=== PATIENT | male | born 1955 | race Caucasian/White ===

== ENCOUNTER 2024-12-16 08:42 | Outpatient (REF) | payer MEDICARE, SELFPAY ==
--- NOTE | ~2024-12-16 | XR_ITS ---
CLINICAL HISTORY: M54.9 - Dorsalgia, unspecified 3 views thoracic spine Comparison: None Findings: The vertebral body heights are preserved. Small anterolateral osteophytes throughout. Intervertebral disc spaces are maintained. No fractures are present. Pedicles intact. Paraspinal lines are normal. Normal thoracic kyphosis. Normal bone mineralization. Impression: 1. No compression fractures or listhesis. This document has been electronically signed by: Demarcus Hill MD on 12/17/2024 12:08:09
--- NOTE | ~2024-12-16 | XR_ITS ---
CLINICAL HISTORY: M51.369 - Other intervertebral disc degeneration, lumbar region without ... 3 views lumbar spine Comparison: None Findings: No acute compression fractures.Degenerative facet arthropathy L3, L4 and L5. 2 mm retrolisthesis L2 relative to L3 and L3 relative to L4. Disc spaces are maintained. Pedicles and transverse processes intact. Lordotic curvature is preserved. Mild scoliosis without lateral listhesis. Normal bone mineralization. Calcified atherosclerotic disease is moderate Sacroiliac joints unremarkable. Impression: 1. Degenerative spondylosis with minimal listhesis. Moderate calcified atherosclerotic disease This document has been electronically signed by: Demarcus Hill MD on 12/17/2024 12:29:58
--- NOTE | ~2024-12-16 | XR_ITS ---
CLINICAL HISTORY: M25.512 - Pain in left shoulder 4 view left shoulder Comparison: None Findings: Normal congruency of the glenohumeral joint. AC joint arthrosis with minimal undersurface spurring. Greater tuberosity cysts. No fractures demonstrated. Minimal soft tissue calcifications near the insertion of the deltoid onto the proximal humerus probable calcific tendinopathy No radiopaque foreign body. Normal visualized left chest. Impression: 1. No fracture, subluxations or dislocations left shoulder. 2. AC joint arthrosis with minimal undersurface spurring. Greater tuberosity cysts a sequela rotator cuff tendinopathy. This document has been electronically signed by: Demarcus Hill MD on 12/17/2024 11:53:35
== END 2024-12-16 08:43 | disposition home or self-care (01) ==
LOC: HO.XRAY 08:42
PROVIDERS: PCP Internal Medicine; Referring Provider Internal Medicine; Visit Provider Nurse Practitioner Family
DX: M54.9 Dorsalgia, unspecified (principal); M47.816 Spondylosis without myelopathy or radiculopathy, lumbar region; M51.369 Other intervertebral disc degeneration, lumbar region without mention of lumbar back pain or lower extremity pain; M25.512 Pain in left shoulder; M54.50 Low back pain, unspecified; G89.29 Other chronic pain
CPT/HCPCS: 72070; 72110; 73030; 99202

== ENCOUNTER 2024-12-16 08:42 | Outpatient (AMB) | payer MEDICARE, SELFPAY ==
--- NOTE | 2024-12-16 08:46 | A.OFFVIS_ITS ---
Vital Signs 12/16/24 08:50 Height 5 ft 10 in Weight 191 lb 8 oz BMI 27.5 BP 150/90 H Blood Pressure Location Rt brachial Position Sitting Pulse 80 Pulse Source Pulse Oximeter Pulse Oximetry (%) 99 Oxygen Delivery Method Room Air Intake Visit Reasons: Low back pain Intake Note: Pain today 11/18 Auto Wash Buffer Required: No Accompanied by: Self / Same As Patient Allergies Penicillins Allergy (Unknown, Verified 12/16/24 08:50) Angioedema HPI Comments Details: The patient is a pleasant 69-year-old male presenting with chronic lower back pain and left shoulder pain. The lower back pain has been an ongoing issue since 2022 without any clear causative trauma or injury. It is characterized by soreness and tightness primarily across the waistline, often associated with muscle spasms, but not radiating to the legs. Pain is typically rated around 5- 7/10 and exacerbates after prolonged sitting and daily activities. Sleep is not disrupted by the pain, and imaging has previously revealed lumbar degenerative disc disease. Denies previous spine or joint injections or surgeries. Concurrently, the patient experiences intermittent pain in the left shoulder, which tends to fluctuate and is aggravated by reaching his backside pockets or between shoulder blades. Previous attempts at relief included physical, chiropractic and massage therapies, which were more effective for shoulder discomfort than for back pain. Oswestry Low Back Disability Score=9 (mild disability) - Onset: Lower back pain since 2022; left shoulder pain for 4 months. - Quality and character: Lower back pain described as sore and tight with muscle spasms; shoulder pain as sharp and aching. - Location: Lower back pain centered across the waistline and lower spine; shoulder pain in the left shoulder aggravated during internal rotation and extension. - Radiation: No lower extremity radiation from back pain; shoulder pain associated with neck discomfort. - Exacerbating factors: Prolonged sitting for back pain; specific arm movements for shoulder pain. - Relieving factors: Not sleeping posture-dependent for back; no specific relieving factors noted for shoulder. - Functions interfered with: Physical activities; however, some recreational activities like pickleball and gym/home exercises. - Affect: Pain does not significantly affect mood or psychological wellbeing. - Analgesia: Medications tried include extra strength Tylenol, topical lidocaine, and heat/ice therapy. Pain level 5-7/10. - Adverse Effects: No specific adverse effects from pain medications reported. - Activities of Daily Living: Pain does not interfere with sleep but affects prolonged sitting and some physical activities. - Aberrant Drug Related Behaviors: No signs of medication misuse or abuse reported. [facility] Medical History (Updated 12/16/24 @ 09:55 by MAYELA Isaacs) Chronic low back pain Atherosclerosis of abdominal aorta Seborrhea Hypertension Hyperlipidemia Family history of colon cancer GERD (gastroesophageal reflux disease) Cholelithiasis Colon polyp Allergic rhinitis Lumbar degenerative disc disease Surgical History (Updated 12/16/24 @ 09:50 by MAYELA Isaacs) Hx of tonsillectomy Social History Alcohol intake: current Alcohol intake frequency: a few times a week Alcohol type: beer Patient Tobacco Use Status: Former Tobacco user Review of Systems Const Details: - Musculoskeletal: Reports muscle spasms in the lower back and left shoulder pain. - Neurological: Denies numbness, weakness, or tingling, bladder or bowel dysfunction or saddle anesthesia. - Gastrointestinal: Reports occasional acid reflux. - Ophthalmic: History of one right eye ocular migraine in 2019. - Respiratory/Systemic: Denies chronic cough but reports slight coughing in the morning. All systems reviewed & are unremarkable except as noted in HPI and below Physical Exam General: Appears afebrile. Alert and oriented. Mood and affect appropriate. Follows and participates in conversation appropriately. Respiratory effort is unlabored. No cough. Able to transition from sit to stand unassisted. Ambulates with bilaterally normal heel strike and toe off. General: Yes no CVA tenderness Back/Spine/Pelvis Other: Patient is able to walk and stand on heels and tip toes with no difficulties demonstrating good motor tone. No limping. Can flex forward to 70-75 degrees and extend to 5-10 degrees before experiencing lumbar pain, worse pain with lumbar extension and axial rotations. Demonstrates 5/5 strength of quadriceps bilaterally as well as flexion/dorsiflexion of bilateral feet against resistance. 2+ pedal pulses bilaterally. Straight leg rise with dorsiflexion negative bilaterally. +2 patellar and achilles reflexes bilaterally. Facet loading test positive bilaterally. Tana sign, Luan?s, and Stinchfield tests are negative bilaterally. No groin pain with I/E hip rotations. Significant paraspinals tenderness mostly in mid and lower back and left cervical paraspinals. Valsalva maneuver is negative. Back: no CVA tenderness Cervical Spine: cervical ROM normal, cervical muscular tenderness, No Cervical spine tenderness and No step off deformity Thoracic/Lumbar Spine: thoracic and lumbar spine normal to inspection, No Thoracic/lumbar spine scar(s), Lasegue's sign negative, straight leg raise negative bilaterally, pain with thoraco-lumbar ROM, paraspinal muscle tenderness, thoraco-lumbar ROM limited, No thoracic spinal tenderness and lumbar spinal tenderness at L4 and at L5 Pelvis: no buttock tenderness Sacroiliac joints: bilaterally nontender Extrem General: Yes capillary refill normal, Yes no clubbing, cyanosis or edema and Yes no calf tenderness Left upper extremity: shoulder/upper arm (Limited ROM with internal rotation and flexion due to pain.) Details: inspection abnormal, tenderness Location: of the A-C joint, over the subacromial bursa and over the deltoid bursa and crepitus; no swelling, no ecchymosis, no deformity and no unsual warmth Results Reviewed Results Reviewed: No imaging results are available for review today. Assessment & Plan Assessment & Plan (1) Lumbar degenerative disc disease: Code(s): M51.369 - Other intervertebral disc degeneration, lumbar region without mention of lumbar back pain or lower extremity pain Category: Medical (2) Lumbar spondylosis: Code(s): M47.816 - Spondylosis without myelopathy or radiculopathy, lumbar region Category: Medical (3) Left shoulder pain: Code(s): M25.512 - Pain in left shoulder Category: Medical (4) Mid back pain: Code(s): M54.9 - Dorsalgia, unspecified Category: Medical (5) Muscle spasm of back: Code(s): M62.830 - Muscle spasm of back Category: Medical (6) Chronic low back pain: Code(s): M54.50 - Low back pain, unspecified; G89.29 - Other chronic pain Category: Medical Plan The patient will receive x-rays of the lower back and left shoulder to evaluate arthritis and degenerative changes. Tizanidine and naproxen are prescribed for musculoskeletal and arthritic pain management, with tizanidine primarily at night, with caution advised due to its effects on blood pressure. Use of naproxen as needed for inflammation-related discomfort is suggested. Discussed interventional treatments for axial low back pain and left shoulder pain. Radiofrequency ablation and peripheral nerve stimulation were explained as options for pain control. Continued physical exercise and lifestyle modifications are essential in the management of the patient's pain. Patient education focused on arthritic pain mechanisms and relief methods. Informational pamphlets were provided to patient. All questions and concerns have been answered and patient agreed with the plan. Follow up for xray results/procedure discussion and sooner as needed. Patient was informed and verbally consented to the use of an ambient scribe for clinic note documentation during this visit. Orders: Orders XR lumbar spine 4V min Today M47.816 - Spondylosis without myelopathy or radiculopathy, lumbar region, M51.369 - Other intervertebral disc degeneration, lumbar region without mention of lumbar back pain or lower extremity pain XR thoracic spine 2V Today M54.9 - Dorsalgia, unspecified XR shoulder LT min 2V Today M25.512 - Pain in left shoulder Medications: New tizanidine 2 mg PO TID PRN 30 tabs 0RF muscle spasm M47.816 - Spondylosis without myelopathy or radiculopathy, lumbar region, M62.830 - Muscle spasm of back naproxen Take it with food and full glass of water. Avoid other NSAIDs. 500 mg PO BID PRN 60 tabs 1RF pain G89.29 - Other chronic pain, M25.512 - Pain in left shoulder, M47.816 - Spondylosis without myelopathy or radiculopathy, lumbar region, M54.50 - Low back pain, unspecified Patient Instructions: I discussed with the patient the likely primary diagnosis of lumbar degenerative disc disease and potentially facet arthropathy and left shoulder arthritis. We reviewed the management options, including potential imaging with x-ray to confirm diagnosis of both back and shoulder pain, alongside therapeutic options like steroid injections, especially focusing on the shoulder and diagnostic lumbar medial branch blocks for potential longer term relief for back pain. A comprehensive explanation of radiofrequency ablation and peripheral nerve stimulation was provided. We assessed the risk factors, benefits, and alternatives, highlighting procedural methods to alleviate chronic pain symptoms. Achieving consent, we touched on the need for lifestyle modifications and detailed how individual adaptations could mitigate further discomfort. Future follow-up would consider ongoing pain management revisions based on the response to initial interventions and x-ray findings. - Undergo x-rays for both the lower back and left shoulder. - Use Tizanidine 2 mg at bedtime for muscle stiffness; monitor blood pressure effects. - Use naproxen as needed for inflammation-related pain, with food and water. - Maintain regular exercise and physical activity, complimenting current lifestyle. - Consider enrolling in the patient portal for follow-up details and ongoing treatment updates. - Be mindful of any new symptoms or escalation in pain, and seek care if concerns arise. - Adhere to recommended pain management strategies, including physical and lifestyle interventions. Coding Level of Care Code New Pt Level 4 (71237) Diagnoses Lumbar degenerative disc disease M51.369 Lumbar spondylosis M47.816 Left shoulder pain M25.512 Mid back pain M54.9 Muscle spasm of back M62.830 Chronic low back pain M54.50; G89.29
[2024-12-16 08:50] VITALS: BP 150/90; PULSE 80; O2SAT 99; BMI 27.5
== END 2024-12-16 09:33 | disposition home or self-care (01) ==
LOC: HO.PMC 08:43
PROVIDERS: PCP Internal Medicine; Referring Provider Internal Medicine; Visit Provider Nurse Practitioner Family
DX: M51.369 Other intervertebral disc degeneration, lumbar region without mention of lumbar back pain or lower extremity pain (principal); M47.816 Spondylosis without myelopathy or radiculopathy, lumbar region; M25.512 Pain in left shoulder; M54.9 Dorsalgia, unspecified; M62.830 Muscle spasm of back; M54.50 Low back pain, unspecified; G89.29 Other chronic pain
CPT/HCPCS: 99204

== ENCOUNTER → 2024-12-16 09:52 | Outpatient (BNV) | payer MEDICARE, SELFPAY | PROVIDERS: PCP Internal Medicine; Referring Provider Internal Medicine; Visit Provider Radiology Diagnostic Radiology | DX: M47.816 Spondylosis without myelopathy or radiculopathy, lumbar region (principal); I70.90 Unspecified atherosclerosis; M54.6 Pain in thoracic spine; M19.012 Primary osteoarthritis, left shoulder | CPT/HCPCS: 72070; 72110; 73030 ==

== ENCOUNTER 2024-12-24 09:07 | Outpatient (AMB) | payer MEDICARE, SELFPAY ==
--- NOTE | 2024-12-24 09:07 | MHC.OFFVIS ---
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 The shoulder pain, persisting for 4 months, increases towards the end of the day after activities and movements, and is partially managed with heat application and naproxen. No prior interventions have been conducted on the shoulder. The lower back pain, since early 2022, surfaces mainly when the patient rises from prolonged sitting and with certain movements. He observes partial and temporary back pain relief with tizanidine and naproxen, but physical therapy addressing some pain but not improving the functioning. PRIOR: The patient is a pleasant 69-year-old male presenting with chronic lower back pain and left shoulder pain. The lower back pain has been an ongoing issue since 2022 without any clear causative trauma or injury. It is characterized by soreness and tightness primarily across the waistline, often associated with muscle spasms, but not radiating to the legs. Pain is typically rated around 5-7/10 and exacerbates after prolonged sitting and daily activities. Sleep is not disrupted by the pain, and imaging has previously revealed lumbar degenerative disc disease. Denies previous spine or joint injections or surgeries. Concurrently, the patient experiences intermittent pain in the left shoulder, which tends to fluctuate and is aggravated by reaching his backside pockets or between shoulder blades. Previous attempts at relief included physical, chiropractic and massage therapies, which were more effective for shoulder discomfort than for back pain. Oswestry Low Back Disability Score=9 (mild disability) - Onset: Lower back pain since 2022; left shoulder pain for 4 months. - Quality and character: Lower back pain described as sore and tight with muscle spasms; shoulder pain as sharp and aching. - Location: Lower back pain centered across the waistline and lower spine; shoulder pain in the left shoulder aggravated during internal rotation and extension. - Radiation: No lower extremity radiation from back pain; shoulder pain associated with neck discomfort. - Exacerbating factors: Prolonged sitting for back pain; specific arm movements for shoulder pain. - Relieving factors: Not sleeping posture-dependent for back; no specific relieving factors noted for shoulder. - Functions interfered with: Physical activities; however, some recreational activities like pickleball and gym/home exercises. - Affect: Pain does not significantly affect mood or psychological wellbeing. - Analgesia: Medications tried include extra strength Tylenol, topical lidocaine, and heat/ice therapy. Pain level 5-7/10. - Adverse Effects: No specific adverse effects from pain medications reported. - Activities of Daily Living: Pain does not interfere with sleep but affects prolonged sitting and some physical activities. - Aberrant Drug Related Behaviors: No signs of medication misuse or abuse reported. [facility] Medical History Chronic low back pain Atherosclerosis of abdominal aorta Seborrhea Hypertension Hyperlipidemia Family history of colon cancer GERD (gastroesophageal reflux disease) Cholelithiasis Colon polyp Allergic rhinitis Lumbar degenerative disc disease Surgical History Hx of tonsillectomy Social History Alcohol intake: current Alcohol intake frequency: a few times a week Alcohol type: beer Patient Tobacco Use Status: Former Tobacco user Review of Systems Const Details: - Musculoskeletal: Reports shoulder and lower back pain. Denies hip or groin pain. - Neurological: Denies numbness or tingling in the legs, bladder or bowel dysfunction or saddle anesthesia. All systems reviewed & are unremarkable except as noted in HPI and below Physical Exam Vital Signs: Last Vital Signs Pulse 79 12/24/24 09:10 BP 170/93 H 12/24/24 09:10 Pulse Ox 98 12/24/24 09:10 Oxygen Delivery Method Room Air 12/24/24 09:10 BMI result Body Mass Index 27.2 General: Appears afebrile. Alert and oriented. Mood and affect appropriate. Follows and participates in conversation appropriately. Respiratory effort is unlabored. No cough. Able to transition from sit to stand unassisted. Ambulates with bilaterally normal heel strike and toe off. General: Yes no CVA tenderness Back/Spine/Pelvis Other: Limited lumbar ROM due to pain with flexion forward. Lumbar extension is intact and does not reproduce significant pain. No limping. Demonstrates 5/5 strength of quadriceps bilaterally as well as flexion/dorsiflexion of bilateral feet against resistance. 2+ pedal pulses bilaterally. Straight leg rise with dorsiflexion negative bilaterally. +2 patellar and achilles reflexes bilaterally. Facet loading test positive bilaterally. Tana sign, Luan?s, and Stinchfield tests are negative bilaterally. No groin pain with I/E hip rotations. Significant paraspinals tenderness mostly in mid and lower back and left cervical paraspinals. Valsalva maneuver is negative. Back: no CVA tenderness Cervical Spine: cervical ROM normal, cervical muscular tenderness, No Cervical spine tenderness and No step off deformity Thoracic/Lumbar Spine: thoracic and lumbar spine normal to inspection, No Thoracic/lumbar spine scar(s), Lasegue's sign negative, straight leg raise negative bilaterally, pain with thoraco-lumbar ROM, paraspinal muscle tenderness, thoraco-lumbar ROM limited, No thoracic spinal tenderness and lumbar spinal tenderness at L4 and at L5 Pelvis: no buttock tenderness Sacroiliac joints: bilaterally nontender Extrem General: Yes capillary refill normal, Yes no clubbing, cyanosis or edema and Yes no calf tenderness Left upper extremity: shoulder/upper arm (Limited ROM with internal rotation and flexion due to pain.) Details: inspection abnormal, tenderness Location: of the A-C joint, over the subacromial bursa and over the deltoid bursa and crepitus; no swelling, no ecchymosis, no deformity and no unsual warmth Results Reviewed Results Reviewed: XR lumbar spine 4V min 12/17/24 Findings: No acute compression fractures.Degenerative facet arthropathy L3, L4 and L5. 2 mm retrolisthesis L2 relative to L3 and L3 relative to L4. Disc spaces are maintained. Pedicles and transverse processes intact. Lordotic curvature is preserved. Mild scoliosis without lateral listhesis. Normal bone mineralization. Calcified atherosclerotic disease is moderate Sacroiliac joints unremarkable. Impression: Degenerative spondylosis with minimal listhesis. Moderate calcified atherosclerotic disease. XR thoracic spine 2V 12/17/24 Findings: The vertebral body heights are preserved. Small anterolateral osteophytes throughout. Intervertebral disc spaces are maintained. No fractures are present. Pedicles intact. Paraspinal lines are normal. Normal thoracic kyphosis. Normal bone mineralization. Impression: No compression fractures or listhesis. XR shoulder LT min 2V 12/17/24 Findings: Normal congruency of the glenohumeral joint. AC joint arthrosis with minimal undersurface spurring. Greater tuberosity cysts. No fractures demonstrated. Minimal soft tissue calcifications near the insertion of the deltoid onto the proximal humerus probable calcific tendinopathy No radiopaque foreign body. Normal visualized left chest. Impression: 1. No fracture, subluxations or dislocations left shoulder. 2. AC joint arthrosis with minimal undersurface spurring. Greater tuberosity cysts a sequela rotator cuff tendinopathy. Assessment & Plan Assessment & Plan (1) Lumbar degenerative disc disease: Code(s): M51.369 - Other intervertebral disc degeneration, lumbar region without mention of lumbar back pain or lower extremity pain Category: Medical (2) Lumbar spondylosis: Code(s): M47.816 - Spondylosis without myelopathy or radiculopathy, lumbar region Category: Medical (3) Left shoulder pain: Code(s): M25.512 - Pain in left shoulder Category: Medical (4) Muscle spasm of back: Code(s): M62.830 - Muscle spasm of back Category: Medical (5) Chronic low back pain: Code(s): M54.50 - Low back pain, unspecified; G89.29 - Other chronic pain Category: Medical (6) Arthritis of left shoulder: Code(s): M19.012 - Primary osteoarthritis, left shoulder Category: Medical (7) Spondylolisthesis of lumbar region: Code(s): M43.16 - Spondylolisthesis, lumbar region Category: Medical Plan Spine and left shoulder xray results were discussed today. Reviewed interventional treatments for axial low back pain and left shoulder pain. Radiofrequency ablation and peripheral nerve stimulation were explained as options for pain control as well as therapeutic injections. Patient would like to address left shoulder pain with steroid injection as initial steps. Orthopedic consultation and possible physical therapy are options for improving the shoulder's function if pain management interventions do not suffice. Schedule Left intra-articular shoulder steroid injection with local and fluoroscopy. Expectations, risks and benefits were reviewed. Patient is aware he will be contacted to schedule this procedure. Continued physical exercise and lifestyle modifications are essential in the management of the patient's pain. Patient education focused on arthritic pain mechanisms and relief methods. Informational pamphlets were provided to patient. MRI of the lumbar spine to assess for neural integrity and compression and follow up on previous xray findings. All questions and concerns have been answered and patient agreed with the plan. Follow up for xray results/procedure discussion and sooner as needed. Patient was informed and verbally consented to the use of an ambient scribe for clinic note documentation during this visit. Orders: Orders MR lumbar spine wo con Today M43.16 - Spondylolisthesis, lumbar region, M47.816 - Spondylosis without myelopathy or radiculopathy, lumbar region, M51.369 - Other intervertebral disc degeneration, lumbar region without mention of lumbar back pain or lower extremity pain Patient Instructions: I discussed with the patient the findings consistent with degenerative joint disease and rotator cuff tendinitis of the left shoulder, proposing a corticosteroid injection under x-ray guidance for precise delivery and maximized relief. For the lumbar spine issues, I confirmed the efficacy of current medication in pain relief and suggested an MRI for a comprehensive evaluation of the spondylolisthesis, with the intent to safeguard against any aggravation. The risks of injections, potential procedural complications, and anticipated recovery time were explained. We agreed on continuing with the medication regimen and potentially incorporating physical therapy after confirming with the injection's outcome. We also discussed the procedure for insurance approval and the absence of contraindications for MRI, ensuring all safety measures are aligned. Follow-ups will include a reevaluation of pain and functional outcomes post-injection and MRI analysis. - Await notification from us post-insurance approval for the shoulder injection scheduling. - Continue current medications: tizanidine and naproxen as prescribed. - Monitor pain levels and report any significant changes or neurological symptoms. - Await a call from the imaging center once the MRI is approved for lumbar spine assessment. - Practice regular stretching and mobility exercises, remaining mindful of prolonged sitting. - Maintain current activity levels; adjust based on pain symptoms. - Seek immediate care if numbness, significant increase in pain, or any new symptoms occur. Coding Level of Care Code Est Pt Level 4 (54368) Complex EM visit Add On G2211 Diagnoses Lumbar degenerative disc disease M51.369 Lumbar spondylosis M47.816 Left shoulder pain M25.512 Muscle spasm of back M62.830 Chronic low back pain M54.50; G89.29 Arthritis of left shoulder M19.012 Spondylolisthesis of lumbar region M43.16
[2024-12-24 09:10] VITALS: BP 170/93; PULSE 79; O2SAT 98; BMI 27.2
== END 2024-12-24 09:28 | disposition home or self-care (01) ==
PROVIDERS: PCP Internal Medicine; Visit Provider Nurse Practitioner Family
DX: M51.369 Other intervertebral disc degeneration, lumbar region without mention of lumbar back pain or lower extremity pain (principal); M47.816 Spondylosis without myelopathy or radiculopathy, lumbar region; M25.512 Pain in left shoulder; M62.830 Muscle spasm of back; M54.50 Low back pain, unspecified; G89.29 Other chronic pain; M19.012 Primary osteoarthritis, left shoulder; M43.16 Spondylolisthesis, lumbar region
CPT/HCPCS: 99214; G2211

== ENCOUNTER → 2024-12-24 09:07 | Outpatient (BNVA) | payer MEDICARE, SELFPAY | PROVIDERS: PCP Internal Medicine; Visit Provider Nurse Practitioner Family | DX: M51.369 Other intervertebral disc degeneration, lumbar region without mention of lumbar back pain or lower extremity pain (principal); M47.816 Spondylosis without myelopathy or radiculopathy, lumbar region; M25.512 Pain in left shoulder; M62.830 Muscle spasm of back; M54.50 Low back pain, unspecified; M19.012 Primary osteoarthritis, left shoulder; M43.16 Spondylolisthesis, lumbar region; G89.29 Other chronic pain | CPT/HCPCS: 99212 ==

== ENCOUNTER → 2025-01-03 07:31 | Outpatient (BNV) | payer MEDICARE, SELFPAY | PROVIDERS: PCP Internal Medicine; Visit Provider Radiology Diagnostic Radiology | DX: M47.816 Spondylosis without myelopathy or radiculopathy, lumbar region (principal) | CPT/HCPCS: 72148 ==

== ENCOUNTER 2025-01-03 07:32 | Outpatient (REF) | payer MEDICARE, SELFPAY ==
--- NOTE | ~2025-01-03 | MR_ITS ---
EXAMINATION: MR LUMBAR SPINE WITHOUT CONTRAST CLINICAL INFORMATION: Other intervertebral disc degeneration, lumbar region. COMPARISON: No prior MRI. Correlated to x-ray dated December 16, 2024. TECHNIQUE: MRI of the lumbar spine was obtained using routine sequences without contrast. FINDINGS: Last rib-bearing vertebra labeled T12. Bone marrow STIR signal abnormality in the endplates of L3-4 and inferior endplate of L2 as well as the posterior elements L4 and left side and L4-L5 on the right side. Multilevel marginal osteophyte formation induces indication more pronounced at L2-3 and L3-4 levels. Grade 1 retrolisthesis, L2-3, L3-4 levels. Conus medullaris ends at inferior endplate of L1 with normal signal. T12-L1: No disc herniation. No neuroforamina stenosis. L1-2: No disc herniation. No neuroforamina stenosis. L2-3: Grade 1 retrolisthesis. Facet joint hypertrophy. Reduced AP diameter of the thecal sac and neuroforamina. No compression upon neural elements. L3-4: Grade 1 retrolisthesis. Facet joint and ligamentum flavum hypertrophy. Reduced AP diameter of the thecal sac abutting the L4 nerve roots on the lateral recesses. Bilateral neuroforamina stenosis, left greater than the right side encroaching the L3 exiting nerve roots. L4-5: Right subarticular broad-based disc herniation. Facet joint hypertrophy. Bilateral neuroforamina narrowing encroaching the exiting nerve roots. And the right L5 nerve root on its lateral recess. L5-S1: Central disc herniation resulting in mild ventral indentation to the thecal sac. Facet joint hypertrophy, left greater than the right side with facet effusion. Bilateral neuroforamina narrowing encroaching the exiting nerve roots. No prevertebral compartment hematoma, mass or fluid collection. MR/MR lumbar spine wo con IMPRESSION: Multilevel lumbar spondylosis resulting in grade 1 retrolisthesis L2-3 and L3-4 abutting the L4 probably L3 and L5 nerve roots. Electronically signed by: Luis Le MD 01/06/2025 02:02 PM EDT
== END 2025-01-03 07:33 | disposition home or self-care (01) ==
LOC: HO.MRI 07:32
PROVIDERS: PCP Internal Medicine; Visit Provider Nurse Practitioner Family
DX: M51.369 Other intervertebral disc degeneration, lumbar region without mention of lumbar back pain or lower extremity pain (principal); M47.816 Spondylosis without myelopathy or radiculopathy, lumbar region; M43.16 Spondylolisthesis, lumbar region
CPT/HCPCS: 72148

== ENCOUNTER 2025-01-07 06:32 | Outpatient (REF) | payer MEDICARE, SELFPAY | END 2025-01-07 06:33 | disposition home or self-care (01) | LOC: CF 06:32 | PROVIDERS: Visit Provider Anesthesiology | DX: Z13.89 Encounter for screening for other disorder (principal) ==

== ENCOUNTER 2025-02-11 06:07 | Outpatient (REF) | payer MEDICARE, SELFPAY ==
--- NOTE | ~2025-02-11 | FL_ITS ---
EXAMINATION: FLUOROSCOPY GUIDANCE FOR NEEDLE PLACEMENT CLINICAL INFORMATION: M19.012 - Primary osteoarthritis, left shoulder COMPARISON: None available. TECHNIQUE: Intraoperative fluoroscopy was provided to referring physician during exam. No radiologist present. FINDINGS: There are 2 images are obtained in the fluoroscopy. There is contrast seen in the joint space and and moderate contrast outside an superior to the glenohumeral joint space. FLUOROSCOPY TIME: 0.1 minute DOSE AREA PRODUCT: 0.0118 uGy-m2 (microgray-meter squared) FL/FL guidance in treatment room IMPRESSION: Fluoroscopy guidance was provided to referring physician with no radiologist present. Electronically signed by: Elbert Amezquita MD 02/13/2025 07:17 AM EDT
--- OUTSIDE RECORDS SUMMARY | 2025-02-11 06:09 | XMS_ITS | Patient Health Record ---
[facility] Address [address] [place] [address] Care Team Providers Care Loss Prevention Agent Name Role Phone Juanjose Leon MD Primary Care Provider Sheree Shaniqua Hickman Unavailable [phone] Allergies Allergen (clinical drug ingredient) Drug/Non Drug Allergy documented on EMR Reaction Allergy Type Onset Date Status Penicillin G Benzathine swelling Drug Allergy Active Reason For Referral No Information Medications Medication SIG (Take, Route, Frequency, Duration) Notes Start Date End Date Status Night Splint AFO - L1930 as directed 10/31/2019 Active Physical Therapy 3-4x per week for 3- 4 weeks 10/31/2019 Active Atorvastatin Calcium 10 MG (Prior Auth#:[id number]) Oral for 90 Active Aspirin Adult Low Strength 81 MG (Prior Auth#:[id number]) Oral for 30 Active Metoprolol Succinate ER 100 MG (Prior Auth#:[id number]) Oral for 90 Active Lisinopril-hydroCHLOROthiaz sarita 10-12.5 MG (Prior Auth#:[id number]) Oral for 90 Active Lipitor Active Social History Tobacco Use: Social History Observation Description Date Details (start date - stop date) Never Smoker NA - NA Tobacco Use/Smoking Question Answer Notes Are you a: nonsmoker Alcohol Screen Question Answer Notes Did you have a drink containing alcohol in the p ast year? No Points 0 Interpretation Negative Tobacco use other than smoking: Question Answer Notes Are you an other tobacco user? No Problems Problem Type SNOMED Code ICD Code Onset Dates Problem Status W/U Status Risk Notes Problem Equinus contracture of left ankle (M24.572) Active confirmed Problem Equinus contracture of right ankle (M24.571) Active confirmed Plan Of Treatment No Information Insurance Providers Payer Name Payer Address Payer Phone Subscriber Number Group Number Insured Name Patient Relationship to Insured Coverage Start Date Coverage End Date Miah Johnson [id number] [place] [phone] [id number] Isha Ya Spouse - patient is the spouse of the insured Medical (General) History Medical History History ICD Code High blood pressure Psoriasis Reflux Sinus conditions Joint implants/screws Surgical History Surgery Date(Month/Year) tonsillectomy 1972 Hospitalization History Reason Date(Month/Year) [facility]- 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
== END 2025-02-11 06:08 | disposition home or self-care (01) ==
LOC: CF 06:07
PROVIDERS: Visit Provider Anesthesiology
DX: M25.512 Pain in left shoulder (principal); M19.012 Primary osteoarthritis, left shoulder
CPT/HCPCS: 20610; J2003; J2795; J3301; Q9967

== ENCOUNTER 2025-02-11 07:48 | Outpatient (AMB) | payer MEDICARE, SELFPAY ==
[2025-02-11 07:52] VITALS: BP 138/80; PULSE 73; RESP 18; O2SAT 100
--- NOTE | 2025-02-11 07:52 | A.OFFVIS_ITS ---
Vital Signs 02/11/25 07:52 Weight 190 lb BP 138/80 Blood Pressure Location Lt brachial Position Sitting Respiration 18 Pulse 73 Pulse Source Pulse Oximeter Pulse Oximetry (%) 100 Oxygen Delivery Method Room Air Intake Visit Reasons: LEFT INTRA-ARTICULAR SHOULDER INJECTION Multifocal Button Generator Required: No Allergies Penicillins Allergy (Unknown, Verified 02/11/25 07:54) Angioedema PFSH Medical History Chronic low back pain Atherosclerosis of abdominal aorta Seborrhea Hypertension Hyperlipidemia Family history of colon cancer GERD (gastroesophageal reflux disease) Cholelithiasis Colon polyp Allergic rhinitis Lumbar degenerative disc disease Surgical History Hx of tonsillectomy Social History Alcohol intake: current Alcohol intake frequency: a few times a week Alcohol type: beer Patient Tobacco Use Status: Former Tobacco user Physical Exam Vital Signs: Last Vital Signs Pulse 73 02/11/25 07:52 Resp 18 02/11/25 07:52 BP 138/80 02/11/25 07:52 Pulse Ox 100 02/11/25 07:52 Oxygen Delivery Method Room Air 02/11/25 07:52 Assessment & Plan Assessment & Plan (1) Left shoulder pain: Code(s): M25.512 - Pain in left shoulder Category: Medical (2) Arthritis of left shoulder: Code(s): M19.012 - Primary osteoarthritis, left shoulder Category: Medical Plan Left intra-articular shoulder joint injection. Dhaval is very pleasant 69 y.o. male who came today to the OR to receive left intraarticular steroid injection. The informed Consent was thoroughly explained to the patient and he was taken to the operating room where he was positioned prone on operating table. His posterior shoulder and upper back were prepped with ChloraPrep draped with sterile utility towels, C-arm was brought over the operating field and picture of the glenohumeral joint was demonstrated on the screen. The anterior medial portion of the joint was chosen as the target of the injection. The projection of the target to the skin was injected with small amount of mixture of lidocaine 2% and ropivacaine 0.5% one-to-one. After that 22 gauge 3-1/2 inch Quincke point needle was inserted through the skin wheal and advanced toward the point of interest in tunnel vision fashion. When the needle entered the joint injection of the contrast was performed demonstrating arthrogram. After that injection of the solution of ropivacaine 0.5% mixed with Kenalog 40 mg was injected into the joint. The needle was withdrawn sterile Band-Aid was applied patient tolerated the procedure well. Orders: Orders FL guidance in treatment room Today M19.012 - Primary osteoarthritis, left shoulder Coding Level of Care Code Procedure Only Diagnoses Left shoulder pain M25.512 Arthritis of left shoulder M19.012
== END 2025-02-11 08:34 | disposition home or self-care (01) ==
LOC: HO.PMCPRC 07:48
PROVIDERS: PCP Internal Medicine; Visit Provider Anesthesiology
DX: M25.512 Pain in left shoulder (principal); M19.012 Primary osteoarthritis, left shoulder
CPT/HCPCS: 20610; 77002

== ENCOUNTER 2025-03-04 08:42 | Outpatient (AMB) | payer MEDICARE, SELFPAY ==
--- NOTE | 2025-03-04 08:45 | MHC.OFFVIS ---
Vital Signs 03/04/25 08:51 Height 5 ft 10 in Weight 176 lb BMI 25.3 BP 132/85 Blood Pressure Location Rt brachial Position Sitting Pulse 77 Pulse Source Pulse Oximeter Pulse Oximetry (%) 97 Oxygen Delivery Method Room Air Intake Visit Reasons: LEFT INTRA-ARTICULAR SHOULDER INJ/ MRI follow up Intake Note: Pain today 1/10 [employer] Required: No Accompanied by: Self / Same As Patient Allergies Penicillins Allergy (Unknown, Verified 02/11/25 07:54) Angioedema HPI Comments Details: The patient is a 69-year-old male presenting today to assess response to recent left shoulder therapeutic injection and discuss recent lumbar spine MRI results. The patient reports that the lower back pain has been acting up again, with a pain level reaching up to 5/10 in the morning, but it does not radiate to the legs. The pain is primarily located in the lower back and sometimes radiates upward, becoming sore at times. He has not taken tizanidine since the steroid injection, which may have provided some systemic relief. The MRI revealed arthritis, disc degeneration and herniation causing bilateral neuroforaminal stenoses, and vertebral slippage, specifically grade 1 retrolisthesis at L2-L3, with no significant numbness, tingling, or weakness in the legs. The patient experiences stiffness after sitting for prolonged periods, which improves upon movement and walking. The shoulder pain is associated with rotator cuff tendinitis and acromioclavicular joint arthritis. The patient reports improved movement in the shoulder post-steroidal injection, with pain levels at 1/10, although some discomfort persists, especially when turning the shoulder. He engages in activities such as pickleball and strength training, which may exacerbate the condition. Past Procedures: 02/11/25: Left intra-articular shoulder [id number] ongoing pain relief PRIOR: Patient is presenting with left shoulder pain and lower back pain follow up and to discuss recent xray results. The shoulder pain, persisting for 4 months, increases towards the end of the day after activities and movements, and is partially managed with heat application and naproxen. No prior interventions have been conducted on the shoulder. The lower back pain, since early 2022, surfaces mainly when the patient rises from prolonged sitting and with certain movements. He observes partial and temporary back pain relief with tizanidine and naproxen, but physical therapy addressing some pain but not improving the functioning. PRIOR: The patient is a pleasant 69-year-old male presenting with chronic lower back pain and left shoulder pain. The lower back pain has been an ongoing issue since 2022 without any clear causative trauma or injury. It is characterized by soreness and tightness primarily across the waistline, often associated with muscle spasms, but not radiating to the legs. Pain is typically rated around 5-7/10 and exacerbates after prolonged sitting and daily activities. Sleep is not disrupted by the pain, and imaging has previously revealed lumbar degenerative disc disease. Denies previous spine or joint injections or surgeries. Concurrently, the patient experiences intermittent pain in the left shoulder, which tends to fluctuate and is aggravated by reaching his backside pockets or between shoulder blades. Previous attempts at relief included physical, chiropractic and massage therapies, which were more effective for shoulder discomfort than for back pain. Oswestry Low Back Disability Score=9 (mild disability) - Onset: Lower back pain since 2022; left shoulder pain for 4 months. - Quality and character: Lower back pain described as sore and tight with muscle spasms; shoulder pain as sharp and aching. - Location: Lower back pain centered across the waistline and lower spine; shoulder pain in the left shoulder aggravated during internal rotation and extension. - Radiation: No lower extremity radiation from back pain; shoulder pain associated with neck discomfort. - Exacerbating factors: Prolonged sitting for back pain; specific arm movements for shoulder pain. - Relieving factors: Not sleeping posture-dependent for back; no specific relieving factors noted for shoulder. - Functions interfered with: Physical activities; however, some recreational activities like pickleball and gym/home exercises. - Affect: Pain does not significantly affect mood or psychological wellbeing. - Analgesia: Medications tried include extra strength Tylenol, topical lidocaine, and heat/ice therapy. Pain level 5-7/10. - Adverse Effects: No specific adverse effects from pain medications reported. - Activities of Daily Living: Pain does not interfere with sleep but affects prolonged sitting and some physical activities. - Aberrant Drug Related Behaviors: No signs of medication misuse or abuse reported. COUNT INCLUDES THE [facility] Medical History Chronic low back pain Atherosclerosis of abdominal aorta Seborrhea Hypertension Hyperlipidemia Family history of colon cancer GERD (gastroesophageal reflux disease) Cholelithiasis Colon polyp Allergic rhinitis Lumbar degenerative disc disease Surgical History Hx of tonsillectomy Social History Alcohol intake: current Alcohol intake frequency: a few times a week Alcohol type: beer Patient Tobacco Use Status: Former Tobacco user Review of Systems Const Details: - Musculoskeletal: Reports lower back pain, stiffness after sitting, improved shoulder movement post-injection. - Neurological: Denies weakness, footdrop, numbness, tingling, or weakness in the legs. All systems reviewed & are unremarkable except as noted in HPI and below Physical Exam Vital Signs: Last Vital Signs Pulse 77 03/04/25 08:51 BP 132/85 03/04/25 08:51 Pulse Ox 97 03/04/25 08:51 Oxygen Delivery Method Room Air 03/04/25 08:51 BMI result Body Mass Index 25.3 General: Appears afebrile. Alert and oriented. Mood and affect appropriate. Follows and participates in conversation appropriately. Respiratory effort is unlabored. No cough. Able to transition from sit to stand unassisted. Ambulates with bilaterally normal heel strike and toe off. General: Yes no CVA tenderness Back/Spine/Pelvis Other: Limited lumbar ROM due to pain with flexion forward. Lumbar extension reproduces mild pain. No limping. Demonstrates 5/5 strength of quadriceps bilaterally as well as flexion/dorsiflexion of bilateral feet against resistance. 2+ pedal pulses bilaterally. Straight leg rise with dorsiflexion negative bilaterally. +2 patellar and achilles reflexes bilaterally. Facet loading test positive bilaterally. Tana sign, Luan?s, and Stinchfield tests are negative bilaterally. No groin pain with I/E hip rotations. Valsalva maneuver is negative. Back: no CVA tenderness Cervical Spine: cervical ROM normal, cervical muscular tenderness, No Cervical spine tenderness and No step off deformity Thoracic/Lumbar Spine: thoracic and lumbar spine normal to inspection, No Thoracic/lumbar spine scar(s), Lasegue's sign negative, straight leg raise negative bilaterally, pain with thoraco-lumbar ROM, paraspinal muscle tenderness, thoraco-lumbar ROM limited, No thoracic spinal tenderness and lumbar spinal tenderness (L3-S1) Pelvis: no buttock tenderness Sacroiliac joints: bilaterally nontender Extrem General: Yes capillary refill normal, Yes no clubbing, cyanosis or edema and Yes no calf tenderness Left upper extremity: shoulder/upper arm (Improved ROM s/p recent steroid injection. Minimal pain w/ I/E rotations) Details: inspection abnormal, tenderness Location: of the A-C joint, over the subacromial bursa and over the deltoid bursa and crepitus; no swelling and no deformity Results Reviewed Results Reviewed: MR LUMBAR SPINE WITHOUT CONTRAST 01/03/25 CLINICAL INFORMATION: Other intervertebral disc degeneration, lumbar region. COMPARISON: No prior MRI. Correlated to x-ray dated December 16, 2024. TECHNIQUE: MRI of the lumbar spine was obtained using routine sequences without contrast. FINDINGS: Last rib-bearing vertebra labeled T12. Bone marrow STIR signal abnormality in the endplates of L3-4 and inferior endplate of L2 as well as the posterior elements L4 and left side and L4-L5 on the right side. Multilevel marginal osteophyte formation induces indication more pronounced at L2-3 and L3-4 levels. Grade 1 retrolisthesis, L2-3, L3-4 levels. Conus medullaris ends at inferior endplate of L1 with normal signal. T12-L1: No disc herniation. No neuroforamina stenosis. L1-2: No disc herniation. No neuroforamina stenosis. L2-3: Grade 1 retrolisthesis. Facet joint hypertrophy. Reduced AP diameter of the thecal sac and neuroforamina. No compression upon neural elements. L3-4: Grade 1 retrolisthesis. Facet joint and ligamentum flavum hypertrophy. Reduced AP diameter of the thecal sac abutting the L4 nerve roots on the lateral recesses. Bilateral neuroforamina stenosis, left greater than the right side encroaching the L3 exiting nerve roots. L4-5: Right subarticular broad-based disc herniation. Facet joint hypertrophy. Bilateral neuroforamina narrowing encroaching the exiting nerve roots. And the right L5 nerve root on its lateral recess. L5-S1: Central disc herniation resulting in mild ventral indentation to the thecal sac. Facet joint hypertrophy, left greater than the right side with facet effusion. Bilateral neuroforamina narrowing encroaching the exiting nerve roots. No prevertebral compartment hematoma, mass or fluid collection. IMPRESSION: Multilevel lumbar spondylosis resulting in grade 1 retrolisthesis L2-3 and L3-4 abutting the L4 probably L3 and L5 nerve roots. XR lumbar spine 4V min 12/17/24 Findings: No acute compression fractures.Degenerative facet arthropathy L3, L4 and L5. 2 mm retrolisthesis L2 relative to L3 and L3 relative to L4. Disc spaces are maintained. Pedicles and transverse processes intact. Lordotic curvature is preserved. Mild scoliosis without lateral listhesis. Normal bone mineralization. Calcified atherosclerotic disease is moderate Sacroiliac joints unremarkable. Impression: Degenerative spondylosis with minimal listhesis. Moderate calcified atherosclerotic disease. XR thoracic spine 2V 12/17/24 Findings: The vertebral body heights are preserved. Small anterolateral osteophytes throughout. Intervertebral disc spaces are maintained. No fractures are present. Pedicles intact. Paraspinal lines are normal. Normal thoracic kyphosis. Normal bone mineralization. Impression: No compression fractures or listhesis. XR shoulder LT min 2V 12/17/24 Findings: Normal congruency of the glenohumeral joint. AC joint arthrosis with minimal undersurface spurring. Greater tuberosity cysts. No fractures demonstrated. Minimal soft tissue calcifications near the insertion of the deltoid onto the proximal humerus probable calcific tendinopathy No radiopaque foreign body. Normal visualized left chest. Impression: 1. No fracture, subluxations or dislocations left shoulder. 2. AC joint arthrosis with minimal undersurface spurring. Greater tuberosity cysts a sequela rotator cuff tendinopathy. Assessment & Plan Assessment & Plan (1) Lumbar degenerative disc disease: Code(s): M51.369 - Other intervertebral disc degeneration, lumbar region without mention of lumbar back pain or lower extremity pain Category: Medical (2) Lumbar spondylosis: Code(s): M47.816 - Spondylosis without myelopathy or radiculopathy, lumbar region Category: Medical (3) Chronic low back pain: Code(s): M54.50 - Low back pain, unspecified; G89.29 - Other chronic pain Category: Medical (4) Left shoulder pain: Code(s): M25.512 - Pain in left shoulder Category: Medical (5) Arthritis of left shoulder: Code(s): M19.012 - Primary osteoarthritis, left shoulder Category: Medical (6) Tendinopathy of left rotator cuff: Code(s): M67.912 - Unspecified disorder of synovium and tendon, left shoulder Category: Medical Plan The plan for managing the patient's chronic low back pain includes monitoring the progression of lumbar disc degeneration, spondylolisthesis, and neuroforaminal stenosis. If the patient's back pain becomes more severe or involves leg pain, a steroidal injection may be considered. For arthritis-related pain, diagnostic medial branch blocks may be used to confirm the source of axial low back pain, and if effective, radiofrequency ablation or temporary peripheral nerve stimulation could be options. He will notify our office when he is ready to consider diagnostic injections. The patient is advised to maintain a balanced diet, avoid highly processed foods, and stay hydrated to support lumbar disc and joint health. For shoulder pain, the patient should avoid heavy lifting or strenuous exercises with the left arm and consider physical therapy to strengthen shoulder muscles and improve function. All questions and concerns have been answered and patient agreed with the plan. Follow up after PT and sooner as needed. Patient was informed and verbally consented to the use of an ambient scribe for clinic note documentation during this visit. Orders: Orders PT Evaluation and Treatment Today M19.012 - Primary osteoarthritis, left shoulder, M25.512 - Pain in left shoulder, M67.912 - Unspecified disorder of synovium and tendon, left shoulder Medications: New camphor-methyl salicyl-menthol 3.1 %-10 %-6 % (large) (Salonpas) may leave on for up to 12 hrs 1 patch topical BID PRN 6 ea 0RF pain 30 days G89.29 - Other chronic pain, M47.816 - Spondylosis without myelopathy or radiculopathy, lumbar region, M51.369 - Other intervertebral disc degeneration, lumbar region without mention of lumbar back pain or lower extremity pain, M54.50 - Low back pain, unspecified Coding Level of Care Code Est Pt Level 4 (58023) Complex EM visit Add On G2211 Diagnoses Lumbar degenerative disc disease M51.369 Lumbar spondylosis M47.816 Chronic low back pain M54.50; G89.29 Left shoulder pain M25.512 Arthritis of left shoulder M19.012 Tendinopathy of left rotator cuff M67.912
[2025-03-04 08:51] VITALS: BP 132/85; PULSE 77; O2SAT 97; BMI 25.3
--- OUTSIDE RECORDS SUMMARY | 2025-03-04 09:03 | XMS_ITS | Patient Health Record ---
[facility] Address [address] [place] [address] Care Team Providers Care National Sales Trainer Name Role Phone Juanjose Leon MD Primary Care Provider Sheree Shaniqua Hickman Unavailable [phone] Allergies Allergen (clinical drug ingredient) Drug/Non Drug [...] 10/31/2019 Active Atorvastatin Calcium 10 MG (Prior Auth#:[id number]) Oral for 90 Active Aspirin Adult Low Strength 81 MG (Prior Auth#:[id number]) Oral for 30 Active Metoprolol Succinate ER 100 MG (Prior Auth#:[id number]) Oral for 90 Active Lisinopril-hydroCHLOROthiaz sarita 10-12.5 MG (Prior Auth#:[id number]) Oral for 90 Active Lipitor Active Social [...] Start Date Coverage End Date Miah [id number] [place] [address] [id number] Isha Ya Spouse - patient is the spouse of the insured Medical (General) History Medical History History ICD Code High blood pressure Psoriasis Reflux Sinus conditions Joint implants/screws Surgical History Surgery Date(Month/Year) tonsillectomy 1972 Hospitalization History Reason Date(Month/Year) [facility]- 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
== END 2025-03-04 09:31 | disposition home or self-care (01) ==
LOC: HO.PMC 08:43
PROVIDERS: PCP Internal Medicine; Visit Provider Nurse Practitioner Family
DX: M51.369 Other intervertebral disc degeneration, lumbar region without mention of lumbar back pain or lower extremity pain (principal); M47.816 Spondylosis without myelopathy or radiculopathy, lumbar region; M54.50 Low back pain, unspecified; G89.29 Other chronic pain; M25.512 Pain in left shoulder; M19.012 Primary osteoarthritis, left shoulder; M67.912 Unspecified disorder of synovium and tendon, left shoulder
CPT/HCPCS: 99214; G2211

== ENCOUNTER → 2025-03-04 08:42 | Outpatient (BNVA) | payer MEDICARE, SELFPAY | PROVIDERS: PCP Internal Medicine; Visit Provider Nurse Practitioner Family | DX: M47.816 Spondylosis without myelopathy or radiculopathy, lumbar region (principal); M54.50 Low back pain, unspecified; G89.29 Other chronic pain; M51.369 Other intervertebral disc degeneration, lumbar region without mention of lumbar back pain or lower extremity pain; M25.512 Pain in left shoulder; M19.012 Primary osteoarthritis, left shoulder; M67.912 Unspecified disorder of synovium and tendon, left shoulder | CPT/HCPCS: 99212 ==

== ENCOUNTER 2025-04-18 08:10 | Outpatient (RCR) | payer MEDICARE, SELFPAY ==
--- NOTE | 2025-03-21 12:15 | MHC.PT.EP ---
[facility] [place] [facility] [place] [facility] [place] Office [address] [place] [address] [address] [phone] F: [phone] F: [phone] F: [phone] F: [phone] Physical Therapy Plan of Care Date of Evaluation: 03/21/25 Date of Surgery: Diagnosis: LEFT SHOULDER PAIN ARTHRITIS, TENDINOPATHY Lt RTC Assessment: 69 YO MALE REF TO PT FOR Lt SH OA, PROGR SINCE NOVEMBER 2024- HE DENIES TRAUMA- HE ENJOYS PLAYING [employer] BALL AND GOING TO THE GYM FOR STRENGTHENING. HE IOS Rt HAND DOMINANT. OBJECTIVE FINDINGS: DECR POSTURAL AWARENESS AND ASYMM, POST RC/ SCAP WEAKNESS, DECR AROM Lt SH AND CERV REGION, (+) SOFT TISSUE IRRIT Lt UT/ PARASCP/ LEV, AND FLUCTUATING PAIN. HE DOES HAVE OBJECTIVE FINDINGS FOR HIS Lt SH, ORIGIN MAY BE CERVICAL AND POSTURAL IN NATURE. FUNCTIONALLY, THE Pt IS ABLE TO PERF REG ADLs, AND HIS PAIN IMPACTS HIM-- UNABLE TO SL Lt FOR SLEEP, LIMITED OVERHEAD LIFTING/ REACHING, LIMITED W MORE PHYSICALLY DEMANDING TASKS. DISCUSSED PT POC , ADDRESSING THE ABOVE FINDINGS.. Frequency and Duration: The patient will be seen 2x WK x 4 WKS Short Term Goals: IMPROVE POSTURAL SELF CORRECTION INITIATE HEP ACTIVATE POST RC/ SCAP MM TO REDUCE UT COMPENSATION Qualitative Executive Researcher Goals: Pt INDEP HEP AND SELF SX MGMT TECHN POST RC/ SCAP STRENGTH INCR BY 1 GRADE Pt IMPROVE QUALITY OF SLEEP, ABLE TO Lt SL Pt DEMON EFFICIENT BODY MECH W 3:3 SIMUAL TASKS/ PICKLEBALL MOVES IMPROVED SPADI, AT EVAL 17/130 Treatment Plan: Modalities to reduce pain, spasms and effusion. Manual therapy to restore motion and function. Therapeutic exercise to improve strength and flexibility. Neuromuscular re-education for posture and balance. Therapeutic activities to return to functional activities of daily living. Electronically signed by: OMERO HARRIS, PT Please sign and return to therapist. Thank you for your referral.
--- NOTE | 2025-04-18 09:26 | MHC.PT.DC ---
[facility] [place] Office [place] Office [place] Office [address] [phone] F: [phone] F: [phone] F: [phone] F: [phone] Physical Therapy Discharge Report Diagnosis: LEFT SHOULDER PAIN ARTHRITIS, TENDINOPATHY Lt RTC Date of Surgery: Date of Evaluation: 03/21/25 Date of Discharge: 04/18/25 Treatments to Date: 9 Cancellations to Date: No Shows to Date: Discharge Status: Achieved Goals Improved Function Independent with HEP Discharge Summary: LAN HAS MADE SOME PROGRESS IN PT- WE HAVE ADDRESSED POSTURE/ TIHORACIC MOBILITY AND DEV A HEP FOR SX MGMT - HE HAS MORE EFFICIENT SCAPULAR STABILITY AND BALANCED MM ACTIV- HE HAS RETURNED TO HIS 3x WK WORKOUTS AT [employer] FOR LIFE AND HE DID DISCUSS HIS SHOULDER SXS WE ENCOURAGED; TODAY HE PRESENTED W ROM IN Lt SH, HOWEVER, W EDUC AND PERF OF LACI MCINTOSH, HE GRAD EASED TISSUE TENSION AND INCR HIS SH ROM. LAN HAS MET HIS PT GOALS TO MAX POTENTIAL AT THIS TIME AND IS D/C W HEP AND A GREATER AWARENESS OF POSTURAL SELF CORRECTION. Electronically signed by: OMERO HARRIS,PT Please sign and return to therapist. Thank you for your referral.
== END 2025-04-18 09:27 | disposition home or self-care (01) ==
LOC: HO.PT 08:10
PROVIDERS: PCP Internal Medicine; Visit Provider Nurse Practitioner Family
DX: M25.512 Pain in left shoulder (principal); M19.012 Primary osteoarthritis, left shoulder; M67.912 Unspecified disorder of synovium and tendon, left shoulder
CPT/HCPCS: 97110; 97161; 97530; 97535